=== PATIENT | female | born 1975 | race Caucasian/White ===

== ENCOUNTER 2025-04-04 10:47 | Outpatient (CLI) | payer BC, SELFPAY ==
--- NOTE | ~2025-04-04 | MR_ITS ---
MRI of the right knee Clinical history: Chondromalacia Technique: Coronal proton density and proton density-weighted images, sagittal proton-density and T2 fat-sat images, and axial proton-density fat-saturated images were acquired. Findings: Anterior and posterior cruciate ligaments are intact. Medial collateral ligament and the la teral collateral ligament complex are intact. Popliteus tendon is intact. Medial and lateral menisci are intact, without evidence of tear. There is patchy moderate to high-grade chondromalacia along the medial patellar facet. There is also high-grade chondromalacia along the inner aspect of the medial femoral condyle. Bone marrow signals a re unremarkable. Extensor mechanism is intact. No significant joint effusion or Dickson's cyst. 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 Reviewed, dictated and finalized at location M. 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
== END 2025-04-04 10:48 | disposition home or self-care (01) ==
LOC: MICIMG 10:47
PROVIDERS: PCP Physician Assistant Medical; Visit Provider Physician Assistant Surgical
DX: M94.261 Chondromalacia, right knee (principal)
CPT/HCPCS: 73721